=== PATIENT | male | born 1965 | race Caucasian/White ===

== ENCOUNTER 2020-02-12 05:26 | Emergency (ER) | payer BC ==
[~2020-02-12] VITALS: Ht 162.6 cm; Wt 73.0 kg
[2020-02-12] MEDS ORDERED: IBUPROFEN 600MG TABLET PO ONE (06:45)
[2020-02-12] MEDS ORDERED: AMLODIPINE 5MG TABLET PO ONE (08:45)
[2020-02-12 09:42] VITALS: BP 156/112
== END 2020-02-12 09:53 | disposition home or self-care (01) ==
LOC: ER 06:35
DX: S40.011A Contusion of right shoulder, initial encounter (principal); S50.01XA Contusion of right elbow, initial encounter; S70.11XA Contusion of right thigh, initial encounter; S10.93XA Contusion of unspecified part of neck, initial encounter; V49.88XA Car occupant (driver) (passenger) injured in other specified transport accidents, initial encounter; Y93.89 Activity, other specified; Y92.89 Other specified places as the place of occurrence of the external cause; Y99.8 Other external cause status
CPT/HCPCS: 72040; 73030; 73070; 73552; 93005; 99284